=== PATIENT | male | born 1990 | race Caucasian/White ===

== ENCOUNTER 2021-04-08 07:56 | Emergency (ER) | payer OTHER ==
[~2021-04-08] VITALS: Ht 185.4 cm; Wt 104.3 kg
[~2021-04-08 07:56] MED LIST: DICLOFENAC SODI75 MG PO; HYDROCODON-ACE1 EA11 PO; NORCO 5-325 TA1 EACH PO
[2021-04-08] MEDS ORDERED: MUPIROCIN22 GM TOP (08:14)
[2021-04-08] MEDS ORDERED: VALACYCLOVIR1000 MG PO (08:35)
== END 2021-04-08 08:44 | disposition home or self-care (01) ==
LOC: ED 07:56
DX: B02.9 Zoster without complications (principal); Z79.899 Other long term (current) drug therapy
CPT/HCPCS: 99282